=== PATIENT | male | born 1960 | race Caucasian/White ===

== ENCOUNTER 2018-07-23 08:36 | Outpatient (CLI) | payer MEDICARE, MEDICAID, SELFPAY ==
[2018-07-23 09:03] LABS: HGB 16.1 g/dL (13.5-17.5); Mean Corpuscular Hemoglobin 31.4 pg (27.0-33.0); Mean Corpuscular Volume 89.7 fL (80-95); Platelet Count 218 x1000/uL (130-400); RBC 5.13 m/cumm (4.50-6.00); RBC Distribution Width 12.8 % (11.8-14.1); White Blood Cell Count 6.07 k/cumm (4.4-10.8)
[2018-07-23 09:53] LABS: Anion Gap 8.8 mmol/L (3-11); BUN 13 mg/dL (7-18); CO2 28.2 mmol/L (21.0-32.0); CREATININE 0.87 mg/dL (0.70-1.30); Calcium 9.3 mg/dL (8.5-10.1); Chloride 99 mmol/L (98-107); Cholesterol 240 mg/dL (50-200); Glucose 230 mg/dL (70-100); HDL Cholesterol 49 mg/dL (40-60); LDL CHOLESTEROL 158 mg/dL (<100); Potassium 4.5 mmol/L (3.5-5.1); Sodium 136 mmol/L (136-145); Triglyceride 202 mg/dL (30-150)
== END 2018-07-23 08:56 ==
PROVIDERS: PCP Family Medicine; Visit Provider Family Medicine
DX: E11.9 Type 2 diabetes mellitus without complications (principal); Z79.4 Long term (current) use of insulin; I10 Essential (primary) hypertension
CPT/HCPCS: 36415; 80048; 80061; 83721; 85027

== ENCOUNTER 2019-11-06 01:07 | Outpatient (CLI) | payer MEDICARE, MEDICAID, SELFPAY ==
[2019-11-06 14:13] LABS: Hemoglobin A1C 10.5 % (3.8-5.6)
== END 2019-11-06 01:27 ==
PROVIDERS: PCP Family Medicine; Visit Provider Family Medicine
DX: E11.9 Type 2 diabetes mellitus without complications (principal); Z79.4 Long term (current) use of insulin
CPT/HCPCS: 36415; 83036

== ENCOUNTER 2020-05-26 14:07 | Outpatient (REF) | payer MEDICARE, MEDICAID, SELFPAY ==
[2020-05-26 16:28] LABS: HCT 48.5 % (40.0-50.0); HGB 16.6 g/dL (13.5-17.5); MCHC 34.2 % (32.0-36.0); MCV 90.7 fL (80-95); MPV 12.1 fL (8.0-11.0); Platelet Count 195 10^3/uL (130-400); RBC 5.35 10^6/uL (4.36-5.78); RDW 11.9 % (11.8-14.1); RDW-SD 39.7 fL; WBC 8.11 10^3/uL (4.4-10.8)
[2020-05-26 17:05] LABS: Anion Gap 5.3 mmol/L (3-11); BUN 14 mg/dL (7-18); CO2 30.7 mmol/L (21.0-32.0); CREATININE 0.95 mg/dL (0.70-1.30); Calcium 9.5 mg/dL (8.5-10.1); Calculated LDL 96 mg/dL (<100); Chloride 101 mmol/L (98-107); Cholesterol 178 mg/dL (<200); Glucose 233 mg/dL (74-106); HDL Cholesterol 52 mg/dL (40-60); Potassium 4.8 mmol/L (3.5-5.1); Sodium 137 mmol/L (136-145); Triglyceride 152 mg/dL (<150); Vitamin B12 423 pg/mL (193-986)
== END 2020-05-26 14:27 ==
LOC: NCHCN 14:07
PROVIDERS: Visit Provider Nurse Practitioner Family
DX: E11.9 Type 2 diabetes mellitus without complications (principal); E78.5 Hyperlipidemia, unspecified
CPT/HCPCS: 80048; 80061; 85027; 82607

== ENCOUNTER 2021-07-31 13:09 | Outpatient (REF) | payer MEDICARE, MEDICAID, SELFPAY ==
[2021-07-31 20:10] LABS: ALT 36 U/L (16-63); AST 18 U/L (15-37); Albumin 3.9 g/dL (3.4-5.0); Alkaline Phosphatase 98 U/L (46-116); Anion Gap 5.9 mmol/L (3-11); BUN 12 mg/dL (7-18); Bilirubin, Total 0.6 mg/dL (0.2-1.0); CO2 29.1 mmol/L (21.0-32.0); CREATININE 0.9 mg/dL (0.70-1.30); Chloride 104 mmol/L (98-107); Glucose 186 mg/dL (74-106); Potassium 4.5 mmol/L (3.5-5.1); Sodium 139 mmol/L (136-145); Total Protein 7.1 g/dL (6.4-8.2)
== END 2021-07-31 13:10 | disposition home or self-care (01) ==
LOC: NCHCN 13:09
PROVIDERS: Visit Provider Nurse Practitioner Family
DX: E11.9 Type 2 diabetes mellitus without complications (principal); E78.5 Hyperlipidemia, unspecified
CPT/HCPCS: 80053

== ENCOUNTER 2021-12-10 23:44 | Emergency (ER) | payer MEDICARE, MEDICAID, SELFPAY ==
[2021-12-10 23:58] VITALS: BP 132/81; PULSE 77; RESP 16; TEMP 37.6; O2SAT 98
[2021-12-11 00:44] LABS: Source Nasal/Nares
[2021-12-11 00:54] LABS: Anion Gap 5.4 mmol/L (3-11); BUN 10 mg/dL (7-18); CO2 31.6 mmol/L (21.0-32.0); Calcium 8.5 mg/dL (8.5-10.1); Chloride 101 mmol/L (98-107); Glucose 176 mg/dL (74-106); Potassium 3.8 mmol/L (3.5-5.1); Sodium 138 mmol/L (136-145)
--- NOTE | 2021-12-11 00:54 | W.ED.GENAD ---
Discharge Plan Disposition Patient Disposition: HOME Condition: Stable Discharge Details Clinical Impression: COVID-19 Primary Care Provider: Unknown,Unknown ED Provider: Vero Gómez Home Meds and New Rx's Prescriptions: Continued atorvastatin 40 mg tablet 40 mg PO DAILY Qty: 90 4RF fluoxetine 20 mg capsule 20 mg PO DAILY Qty: 90 4RF Flintstones Tab Chew 100 MCG tablet,chewable 1 tab PO acetaminophen 325 MG tablet 2 tab PO PRN aspirin [Aspir-Low] 81 MG tablet,delayed release (DR/EC) 1 tab PO DAILY calcium carbonate [Tums Ultra] 400 MG tablet,chewable 1 - 2 tab PO PRN (DME) lancets [OneTouch Delica Lancets] 1 EACH misc 1 ea Intradermal DAILY Qty: 100 Rx Instructions: DX:250.00 metformin 1,000 mg tablet 1,000 mg PO BID Qty: 180 4RF (DME) pen needle, diabetic [BD Ultra-Fine Opal Pen Needle] 32 gauge x 5/32 needle 1 ea Miscellaneous DAILY Qty: 100 4RF Rx Instructions: One daily (DME) blood sugar diagnostic Strip 1 ea Miscellaneous DAILY Qty: 100 3RF Rx Instructions: Test daily Trulicity 3 mg/0.5 mL pen injector SUBCUT Label Comments: INJECT 0.5ML SUBCUTANEOUSLY ONCE A WEEK insulin glargine [Basaglar KwikPen U-100 Insulin] 100 unit/mL (3 mL) insulin pen 36 unit SC .QHS Discontinued atorvastatin 40 mg tablet Label Comments: TAKE ONE TABLET BY MOUTH AT BEDTIME Discharge Instructions Instructions: COVID-19 (Coronavirus Disease 2019) (ED) Additional Instructions: Your COVID PCR test today confirmed that you are COVID-positive. You are being treated with the antiviral medication called Paxlovid to prevent progression to severe illness or associated with COVID-19. It is recommended that you hold taking your atorvastatin or Lipitor while taking the paxlovid. You may resume your Lipitor once you are finished taking Paxlovid. Follow-up with your primary care doctor in 1 week. Return to the emergency department with any worsening or new concerning symptoms such as difficulty breathing, persistent vomiting or any other concerns. Discharge Data Discharge Physician: Vero Gómez Medical Decision Making 61-year-old male with a history of obesity, cognitive delay, diabetes, hyperlipidemia, sleep apnea and restless legs presents with a report of COVID-positive on home test last night now presents with fever. Patient has no acute complaints on my evaluation. Temp 99.7. Normal ENT exam. Lungs clear bilaterally. As patient currently is asymptomatic and appears nontoxic, do not feel indication for imaging. COVID PCR test obtained on arrival and confirmed he is positive to initiate paxlovid. Discussed with pharmacy on-call and there are no contraindications paxlovid other than to hold his atorvastatin while taking paxlovid. Paxlovid was dispensed upon discharge. Advised to follow up with the primary care doctor for re-evaluation. Usual and customary return precautions given prior to discharge. Medical Records Medical records reviewed: Yes I reviewed the patient's medical records. HPI General Mode of arrival: ambulatory. Date/Time Provider Initiated Documentation: 12/10/21 23:47. Limitations to Documentation: no limitations. Information obtained by: patient. HPI Narrative: Patient is a 61-year-old male with a history of obesity, cognitive developmental delay, diabetes, hyperlipidemia, obstructive sleep apnea, and restless legs who presents with diagnosis of COVID last night on a home test presents for evaluation for fever. Patient currently denies any acute complaints. Caregiver at bedside states he had a temp of 100 today. Patient denies headache, neck pain, chest pain, difficulty breathing, abdominal pain, vomiting or diarrhea. Related Data Home Medications Medication Instructions Recorded Confirmed pediatric multivitamin no.7-folic 1 tab PO 09/08/12 01/30/19 acid 100 mcg chewable tablet (Flintstones Tab Chew) acetaminophen 325 mg tablet 2 tab PO PRN 08/13/14 12/11/21 aspirin 81 mg tablet,delayed 1 tab PO DAILY 08/13/14 12/11/21 release (Aspir-Low) calcium carbonate 400 mg calcium 1 - 2 tab PO PRN 08/13/14 12/11/21 (1,000 mg) chewable tablet (Tums Ultra) lancets 33 gauge (OneTouch Delica #100 ea 03/18/15 01/30/19 Lancets) metformin 1,000 mg tablet 1,000 mg PO BID #180 tabs 04/08/19 12/11/21 pen needle, diabetic 32 gauge x #100 ea 10/12/19 (BD Ultra-Fine Opal Pen Needle) atorvastatin 40 mg tablet 40 mg PO DAILY #90 tabs 10/16/19 12/11/21 fluoxetine 20 mg capsule 20 mg PO DAILY #90 caps 10/16/19 12/11/21 blood sugar diagnostic #100 strips 11/23/19 dulaglutide 3 mg/0.5 mL device subcut 12/11/21 subcutaneous pen injector (Trulicity) insulin glargine 100 unit/mL (3 36 unit subcut .QHS 12/11/21 12/11/21 mL) subcutaneous pen (Basaglar KwikPen U-100 Insulin) Previous Rx's Medication Instructions Recorded metformin 1,000 mg tablet 1,000 mg PO BID #180 tabs 04/08/19 pen needle, diabetic 32 gauge x #100 ea 10/12/19 (BD Ultra-Fine Opal Pen Needle) atorvastatin 40 mg tablet 40 mg PO DAILY #90 tabs 10/16/19 fluoxetine 20 mg capsule 20 mg PO DAILY #90 caps 10/16/19 blood sugar diagnostic #100 strips 11/23/19 Allergies Allergy/AdvReac Type Severity Reaction Status Date / Time No Known Allergies Allergy Unverified 12/11/21 00:03 General Stated Complaint: RespSymp VJ: 3 Review of Systems All systems reviewed & are unremarkable except as noted in HPI and below Constitutional Constitutional: Reports as per HPI, Denies chills and Reports fever(s) Eyes Eyes: Denies blurry vision ENT Ears, Nose, Mouth, and Throat: Denies dizziness, Denies sore throat and Denies throat swelling Cardiovascular Cardiovascular: Denies chest pain and Denies dyspnea Respiratory Respiratory: Denies cough and Denies dyspnea Gastrointestinal Gastrointestinal: Denies abdominal pain, Denies diarrhea and Denies vomiting Genitourinary Genitourinary: Denies hematuria and Denies dysuria Musculoskeletal Musculoskeletal: Denies back pain and Denies numbness Integumentary/Breasts Skin/Breast: Denies lesions and Denies rash Neurologic Neurologic: Denies dizziness, Denies localized weakness and Denies numbness Allergic/Immunologic Allergic/Immunologic: Denies throat swelling PFSH All Active Problems (Updated 12/11/21 @ 02:13 by Vero Gómez DO) COVID-19 (Acute) Medical History (Updated 12/11/21 @ 02:13 by Vero Gómez DO) Cognitive developmental delay Diabetes mellitus, type II, insulin dependent Hyperlipidemia Obesity Obstructive sleep apnea syndrome Restless legs Surgical History (Updated 12/11/21 @ 01:14 by Vero Gómez DO) Status post total knee replacement Family History Mother , 74 Dementia Father , 70 Diabetes Heart disease Sister No problems noted. Sister No problems noted. Brother Alcohol abuse Brother Dementia Other Depression Social History (Updated 07/23/18 @ 08:56 by Ta Marie) Smoking/Tobacco Use Status: Current-Occasional Tobacco Type: cigars Second Hand Exposure: No Smoking risk assessment performed?: Yes Alcohol Intake: never Drug use: Never Substance use type: does not use Caregiver/Support person: Yes Household members: other Details: Home care provider, her children and another client. Housing: house Communication Needs: None Do you need help understanding health information?: Often current occupation: [employer] Pets and animals: Yes Pets and animals: cat(s) Sexually active: No Do you think of yourself as: straight/heterosexual Current gender identity: male What is your relationship status?: never How often do you talk on the phone with friends or family?: never How often do you get together with friends or relatives?: once per week How often do you attend amish or judaism services?: decline to answer Do you belong to any clubs or organized social groups?: no Panel score (0-1 are the most socially isolated patients): 0 What type of physical activity do you participate in: walking Duration: 15-30 minutes/day Frequency: 1-2 times per week Lolis/Lutheran: None Special lolis needs: No Seatbelt use: always Drive intox or ride w/intox rear load truck driver: No Exam Const General: cooperative, healthy appearing and no acute distress Orientation: alert, awake and oriented x3 HENMT Head: normal to inspection Ears: hearing grossly normal bilaterally, external ears normal and TM's normal bilaterally General nose exam: external nose normal Face and sinus: normal facial exam Mouth: oral mucosae normal Throat: posterior oropharynx normal Eyes General: appearance normal, both eyes and all related structures Neck Neck: normal visual inspection Resp Effort & Inspection: normal respiratory effort and able to speak in complete sentences Auscultation: clear to auscultation bilaterally Cardio Rate: regular rate Rhythm: regular rhythm GI Inspection: normal to inspection and no abdominal wall ecchymosis Palpation: soft, not firm, no guarding, not rigid and nontender Skin General skin exam: no rashes or lesions noted Neuro General: patient alert, patient awake and patient oriented x3 Motor: muscle tone normal throughout Extrem General: normal to inspection and full ROM Psych Appearance: grossly normal Affect: normal affect Course Vital Signs Vital signs: Vital Signs Temperature 99.7 F H 12/10/21 23:58 Pulse 77 12/10/21 23:58 Respiratory Rate 16 12/10/21 23:58 Blood Pressure 132/81 12/10/21 23:58 Pulse Oximetry 98 12/10/21 23:58 Temperature 99.7 F H 12/10/21 23:58 Temperature Source Oral 12/10/21 23:58 Pulse 77 12/10/21 23:58 Respiratory Rate 16 12/10/21 23:58 Respiratory Effort 12/10/21 23:58 Blood Pressure 132/81 12/10/21 23:58 Blood Pressure Position Sitting 12/10/21 23:58 Pulse Oximetry 98 12/10/21 23:58 Oxygen Delivery Method Room Air 12/10/21 23:58 Oxygen Flow Rate 0 12/10/21 23:58 Pain Level 0 12/10/21 23:58 Lab/Test Results Lab/Test Results: Laboratory Tests Range/Units 12/11/21 00:35 COVID-19 Source Nasal/Nares
[2021-12-11 01:09] LABS: COVID-19 PCR Positive (Negative)
[2021-12-11 02:20] VITALS: BP 129/79; PULSE 75; RESP 16; TEMP 37.6; O2SAT 98
== END 2021-12-11 02:24 | disposition home or self-care (01) ==
PROVIDERS: Emergency Provider Physician Assistant
DX: U07.1 COVID-19 (principal); E11.9 Type 2 diabetes mellitus without complications; F17.290 Nicotine dependence, other tobacco product, uncomplicated; Z79.4 Long term (current) use of insulin; Z79.84 Long term (current) use of oral hypoglycemic drugs
CPT/HCPCS: 36416; 80048; 82962; 87635; 99283; 99284

== ENCOUNTER 2022-12-06 18:39 | Outpatient (REF) | payer MEDICARE, MEDICAID, SELFPAY ==
[2022-12-06 16:44] LABS: Abs Immature Grans 0.02 10^3/uL (0.0-0.06); Absolute Basophil Count 0.07 10^3/uL (0.0-0.2); Absolute Eosinophil Count 0.43 10^3/uL (0.0-0.7); Absolute Lymphocyte Count 2.02 10^3/uL (1.2-3.4); Absolute Monocyte Count 0.52 10^3/uL (0.1-0.8); Absolute Neutrophil Count 5.73 10^3/uL (1.2-6.7); Basophils % 0.8; Eosinophils % 4.9; HCT 45.3 % (40.0-50.0); HGB 15.5 g/dL (13.5-17.5); Immature Grans % 0.2; MCH 31.2 pg (27.0-33.0); MCHC 34.2 % (32.0-36.0); MCV 91 fL (80-95); MPV 11.8 fL (8.0-11.0); Monocytes % 5.9; Neutrophils % 65.2; Platelet Count 284 10^3/uL (130-400); RBC 4.97 10^6/uL (4.36-5.78); RDW 12.2 % (11.8-14.1); RDW-SD 40.6 fL; WBC 8.79 10^3/uL (4.4-10.8)
[2022-12-06 17:17] LABS: Vitamin D 25 Total 25.1 ng/mL (30-100)
[2022-12-06 17:21] LABS: ALT 31 U/L (16-63); AST 22 U/L (15-37); Albumin 3.8 g/dL (3.4-5.0); Alkaline Phosphatase 101 U/L (46-116); Anion Gap 10.4 mmol/L (3-11); BUN 16 mg/dL (7-18); Bilirubin, Total 0.6 mg/dL (0.2-1.0); CO2 23.6 mmol/L (21.0-32.0); Calcium 8.8 mg/dL (8.5-10.1); Calculated LDL 52 mg/dL (<100); Chloride 102 mmol/L (98-107); Cholesterol 122 mg/dL (<200); Estimated GFR 85.63 (mL/min/1.73m2); Glucose 179 mg/dL (74-106); HDL Cholesterol 49 mg/dL (40-60); Potassium 4.3 mmol/L (3.5-5.1); Sodium 136 mmol/L (136-145); Total Protein 7.5 g/dL (6.4-8.2); Triglyceride 105 mg/dL (<150); Vitamin B12 265 pg/mL (193-986)
[2022-12-06 17:57] LABS: Hemoglobin A1C 6.9 % (<5.7)
== END 2022-12-06 18:40 | disposition home or self-care (01) ==
LOC: NCHCN 18:39
PROVIDERS: Visit Provider Nurse Practitioner Family
DX: E78.5 Hyperlipidemia, unspecified (principal); E11.9 Type 2 diabetes mellitus without complications; E55.9 Vitamin D deficiency, unspecified; Z79.899 Other long term (current) drug therapy
CPT/HCPCS: 80053; 80061; 82306; 82607; 83036; 85025

== ENCOUNTER 2023-06-06 10:56 | Outpatient (REF) | payer MEDICARE, MEDICAID, SELFPAY ==
[2023-06-06 16:18] LABS: Hemoglobin A1C 6.4 % (<5.7)
[2023-06-06 16:59] LABS: Vitamin D 25 Total 31.5 ng/mL (30-100)
== END 2023-06-06 10:57 | disposition home or self-care (01) ==
LOC: NCHCN 10:56
PROVIDERS: Visit Provider Nurse Practitioner Family
DX: E11.9 Type 2 diabetes mellitus without complications (principal); E55.9 Vitamin D deficiency, unspecified
CPT/HCPCS: 82306; 83036

== ENCOUNTER 2025-03-18 17:09 | Outpatient (CLI) | payer MEDICARE, MEDICAID, SELFPAY ==
[2025-03-18 17:51] LABS: Hemoglobin A1C 6.6 % (<5.7)
== END 2025-03-18 17:10 | disposition home or self-care (01) ==
LOC: LBO 17:10
PROVIDERS: Visit Provider Nurse Practitioner Family
DX: E11.9 Type 2 diabetes mellitus without complications (principal)
CPT/HCPCS: 36415; 83036